=== PATIENT | female | born 1995 | race Caucasian/White ===

== ENCOUNTER 2021-05-07 12:34 | Outpatient (CLI) | payer OTHER ==
[2021-05-08] MEDS ORDERED: PRENATAL VITAM1 EAC3 PO (07:46)
[2021-05-08] MEDS ORDERED: PEPCID40 MG PO (07:47)
[2021-05-08] MEDS ORDERED: IBUPROFEN600 MG PO (14:33)
[2021-05-08] MEDS ORDERED: COLACE 100MG C100 MG PO (14:33)
[2021-05-08] MEDS ORDERED: FERROUS SULFAT325 MG PO (14:33)
== END 2021-05-07 18:00 | disposition home or self-care (01) ==
LOC: GENOP 12:34
DX: O46.90 Antepartum hemorrhage, unspecified, unspecified trimester (principal); O36.8190 Decreased fetal movements, unspecified trimester, not applicable or unspecified; O47.9 False labor, unspecified; Z3A.00 Weeks of gestation of pregnancy not specified
CPT/HCPCS: 59025; 81001; 96360; 96361

== ENCOUNTER 2021-05-08 05:34 | Inpatient (IN) | payer OTHER ==
[~2021-05-08] VITALS: Ht 165.1 cm; Wt 72.6 kg
[2021-05-08] MEDS ORDERED: PRENATAL VITAM1 EAC3 PO (07:46)
[2021-05-08] MEDS ORDERED: PEPCID40 MG PO (07:47)
[2021-05-08 07:48] LABS: HEMOGLOBIN 11.5 gm/dl (12.3-15.3); RED BLOOD COUNT 4.03 M/UL (4.00-5.10)
[2021-05-08] MEDS ORDERED: FERROUS SULFAT325 MG PO (14:33)
[2021-05-08] MEDS ORDERED: COLACE 100MG C100 MG PO (14:33)
[2021-05-08] MEDS ORDERED: IBUPROFEN600 MG PO (14:33)
[2021-05-09 06:45] LABS: HEMOGLOBIN 10.4 gm/dl (12.3-15.3)
== END 2021-05-10 14:34 | disposition home or self-care (01) | DRG 807 ==
LOC: GENOP 05:34 → OB 15:04
PROVIDERS: Obstetrics & Gynecology; ADMIT Obstetrics & Gynecology
PROC: 10907ZC Drainage of Amniotic Fluid, Therapeutic from Products of Conception, Via Natural or Artificial Opening (ICD-10-PCS; principal; 2021-05-08)
PROC: 10E0XZZ Delivery of Products of Conception, External Approach (ICD-10-PCS; 2021-05-08)
PROC: 10H07YZ Insertion of Other Device into Products of Conception, Via Natural or Artificial Opening (ICD-10-PCS; 2021-05-08)
PROC: 4A1H7CZ Monitoring of Products of Conception, Cardiac Rate, Via Natural or Artificial Opening (ICD-10-PCS; 2021-05-08)
PROC: 10H073Z Insertion of Monitoring Electrode into Products of Conception, Via Natural or Artificial Opening (ICD-10-PCS; 2021-05-08)
PROC: 0UQGXZZ Repair Vagina, External Approach (ICD-10-PCS; 2021-05-08)
PROC: 3E0234Z Introduction of Serum, Toxoid and Vaccine into Muscle, Percutaneous Approach (ICD-10-PCS; 2021-05-08)
DX: O34.219 Maternal care for unspecified type scar from previous cesarean delivery (principal); Z37.0 Single live birth; O99.892 Other specified diseases and conditions complicating childbirth; K21.9 Gastro-esophageal reflux disease without esophagitis; Z20.822 Contact with and (suspected) exposure to COVID-19; Z3A.38 38 weeks gestation of pregnancy; Z23 Encounter for immunization
CPT/HCPCS: 36415; 81001; 83518; 85014; 85018; 85025; 90715; J2405; J2590; J7120; U0002